=== PATIENT | female | born 1935 | race Caucasian/White ===

== ENCOUNTER 2017-04-29 17:28 | Emergency (ER) | payer MEDICARE ==
--- NOTE | 2017-04-29 18:27 | EDM.PDOC ---
ED HPI GENERAL MEDICAL PROBLEM - General Chief Complaint: Head Injury Stated Complaint: Fall with head injury Time Seen by Provider: 04/29/17 17:55 Source of Information: Reports: Patient, Family History Limitations: Reports: No Limitations - History of Present Illness INITIAL COMMENTS - FREE TEXT/NARRATIVE: Patient brought in for evaluation by daughter after falling and hitting head on car. Patient does not recall incident very clearly. Daughter was present. Saw her mother try to get out of the car. Patient slipped on mud, fell backwards, made contact with back of head on opened car door. No obvious full LOC but daughter reports that for some time her mother appeared dazed and only looked at the ground. Described her mother as being a "marshmallow". She was able to get her mother to stand with the assistance of a passerby. Patient complains of discomfort left posterior head as well as lower neck. No vision changes. Denies any other injuries other than left shoulder feeling a little sore. neck Pain Score (Numeric/FACES): 8 - Related Data Allergies Allergy/AdvReac Type Severity Reaction Status Date / Time acetaminophen [From Tylenol] Allergy Facial Verified 04/29/17 17:46 Swelling Home Meds: Home Meds Estrogens, Conjugated [Premarin] 0.5 tab PO DAILY 04/29/17 [History] Insulin Aspart [Novolog Flexpen] See Protocol SUBCUT TIDMEALS 04/29/17 [History] Insulin Detemir [Levemir] 7 units SUBCUT DAILY@2100 04/29/17 [History] RX: Levothyroxine [Synthroid] 88 mcg PO SUTUTHSA@0804/29/17 [History] RX: Levothyroxine [Synthroid] 100 mcg PO MOWEFR@0804/29/17 [History] RX: Lovastatin 10 mg PO DAILY 04/29/17 [History] RX: Metoprolol Tartrate 25 mg PO BID 04/29/17 [History] RX: Valsartan 80 mg PO DAILY 04/29/17 [History] Past Medical History Cardiovascular History: Reports: High Cholesterol, Hypertension Endocrine/Metabolic History: Reports: Diabetes, Type II, Hypothyroidism Social & Family History - Tobacco Use Smoking Status *Q: Never Smoker - Caffeine Use Caffeine Use: Reports: Coffee - Alcohol Use Alcohol Use History: No Alcohol Use in Last Twelve Months: No ED ROS GENERAL - Review of Systems Review Of Systems: See Below Constitutional: Reports: No Symptoms HEENT: Reports: No Symptoms. Denies: Dental Pain, Ear Pain, Eye Pain, Nosebleed , Nose Pain, Vertigo, Vision Change Respiratory: Reports: No Symptoms Cardiovascular: Reports: No Symptoms. Denies: Chest Pain GI/Abdominal: Reports: No Symptoms. Denies: Abdominal Pain : Reports: No Symptoms Musculoskeletal: Reports: Neck Pain, Shoulder Pain. Denies: Arm Pain, Back Pain , Hand Pain, Leg Pain, Foot Pain, Joint Pain, Joint Swelling, Muscle Pain, Muscle Stiffness Skin: Reports: Lumps (back of head), Other (small scab lateral to left eye from eyeglasses when she bumped her head yesterday) Neurological: Reports: Headache. Denies: Confusion, Dizziness, Numbness, Paresthesia, Seizure, Syncope, Tingling, Tremors, Trouble Speaking, Difficulty Walking, Weakness, Change in Speech, Gait Disturbance Psychiatric: Reports: No Symptoms ED EXAM, HEAD INJURY - Physical Exam Exam: See Below Exam Limited By: No Limitations General Appearance: Alert, WD/WN, No Apparent Distress Head: Scalp Hematoma (left posterior scalp/ occiput), Scalp Tenderness. No: Scalp Abrasions, Scalp Ecchymosis, Active Bleeding, Geronimo's Sign, Facial Abrasions, Facial Ecchymosis, Facial Lacerations, Facial Swelling, Sinus Tenderness, Facial Tenderness, Raccoon Eyes Nexus Criteria: Posterior, Midline Cervical Tenderness (towards base of neck). No: Evidence of Intoxication, Altered Level of Consciousness, Focal Neurological Deficit, Painful Distraction Injuries Eyes: Bilateral Eye: EOMI, PERRL Ears: Normal External Exam, Normal Canal, Hearing Grossly Normal, Normal TMs Nose: Normal Inspection, Normal Mucousa, No Blood Throat/Mouth: Normal Inspection, Normal Lips, Normal Teeth (normal dentition for age), Normal Gums, Normal Oropharynx, Normal Voice, No Airway Compromise Neck: Tenderness (midline and just lateral to base of neck). No: Abnormal Alignment, Limited Range of Motion, Muscle Spasm Respiratory: No Respiratory Distress, Lungs Clear, Normal Breath Sounds, No Accessory Muscle Use, Chest Non-Tender Cardiovascular: Normal Peripheral Pulses, Regular Rate, Rhythm, No Edema, No Murmur GI/Abdominal Exam: Normal Bowel Sounds, Soft, Non-Tender, No Distention (Female) Exam: Deferred Rectal (Female) Exam: Deferred Back Exam: No: CVA Tenderness (L), CVA Tenderness (R), Decreased Range of Motion , Muscle Spasm, Paraspinal Tenderness, Vertebral Tenderness Extremities: Normal Inspection (no focal tenderness noted with palpation), Normal Range of Motion, No Pedal Edema, Normal Capillary Refill Neurologic: No Motor/Sensory Deficits, Alert, Normal Mood/Affect, Oriented x 3 DTR: 2+: Bicep (R), Bicep (L), Patella (R), Patella (L) Skin: Normal Color, Warm/Dry, Other (healing area/small scab lateral to left eyebrow. No redness or drainage. ) - Yash Coma Score Best Eye Response ([place]): (4) Open Spontaneously Best Verbal Response (Yash): (5) Oriented Best Motor Response (Yash): (6) Obeys Commands Course - Vital Signs Last Recorded V/S: Last Vital Signs Temp 36.3 C 04/29/17 19:30 Pulse 74 04/29/17 19:30 Resp 16 04/29/17 19:30 BP 127/62 04/29/17 19:30 Pulse Ox 99 04/29/17 19:30 - Orders/Labs/Meds Orders: Active Orders 24 hr Category Date Time Status C-Spine [Cervical Spine wo Cont] [CT] Stat Exams 04/29/17 18:12 Taken Head wo Cont [CT] Stat Exams 04/29/17 18:12 Taken Labs: Laboratory Tests 04/29/17 Range/Units 19:49 POC Glucose 395 H* (65-110) mg/dl Meds: Medications Discontinued Medications Generic Name Dose Route Start Last Admin Trade Name Freq PRN Reason Stop Dose Admin Neomycin/Polymyxin/Bacitracin 1 each 04/29/17 19:54 04/29/17 19:58 Triple Antibiotic Oint TOP 04/29/17 19:55 1 each ONETIME ONE Administration - Radiology Interpretation CT Results Date: 04/29/17 CT Results Time: 19:50 (Degenerative changes in CSpine noted. No acute fractures /bleeds/trauma noted for head and C-spine studies. ) - Re-Assessments/Exams Free Text/Narrative Re-Assessment/Exam: 04/29/17 18:36 Given description from patient's daughter on how stunned patient was for 5-10" after fall, as well as complaint of neck pain, options were discussed and daughter/patient agreed with obtaining head and neck CT. 04/29/17 20:30 Scans negative for acute injury. Discussed results with patient and daughter. Will discharge patient home. Daughter will check on patient and agrees to bring her back to ER if any worsening problems are noted. Precautions reviewed prior to discharge. Departure - Departure Time of Disposition: 20:24 Disposition: Home, Self-Care 01 Condition: Good Clinical Impression: Strain of neck muscle Contusion of head Qualifiers: Encounter type: initial encounter Contusion of head detail: scalp Qualified Code(s): S00.03XA - Contusion of scalp, initial encounter Fall Qualifiers: Encounter type: initial encounter Qualified Code(s): W19.XXXA - Unspecified fall, initial encounter - Discharge Information Instructions: Head Injury, Adult, [id number] Referrals: PCP,Not In Area [Family Provider] - Forms: ED Department Discharge Additional Instructions: Take it easy for the next several days. OTC pain medication as discussed, please use caution with amount and frequency of ibuprofen/Aleve as it is hard on the kidneys. Ice may be helpful. Follow up if you have worsening problems/ neuro changes. Follow up with primary provider in 2-3 days if you are not seeing improvement. - My Orders Last 24 Hours: My Active Orders 04/29/17 18:12 C-Spine [Cervical Spine wo Cont] [CT] Stat Head wo Cont [CT] Stat - Assessment/Plan Last 24 Hours: My Active Orders 04/29/17 18:12 C-Spine [Cervical Spine wo Cont] [CT] Stat Head wo Cont [CT] Stat
[2017-04-29 19:45] VITALS: BP 127/62
[2017-04-29] MEDS ORDERED: Bacitracin/Neomycin/Polymyxin B Oint 0.9 GM U/D Packet TOP ONE (19:54)
== END 2017-04-29 20:36 | disposition home or self-care (01) ==
LOC: LL.ED 17:28 → SUPCPDRO 17:28 → LL.ED 20:36
DX: S16.1XXA Strain of muscle, fascia and tendon at neck level, initial encounter (principal); S00.03XA Contusion of scalp, initial encounter; E78.00 Pure hypercholesterolemia, unspecified; R40.2412 Glasgow coma scale score 13-15, at arrival to emergency department; I10 Essential (primary) hypertension; E03.9 Hypothyroidism, unspecified; E11.9 Type 2 diabetes mellitus without complications; Z79.899 Other long term (current) drug therapy; Z79.4 Long term (current) use of insulin; Z88.8 Allergy status to other drugs, medicaments and biological substances; W01.198A Fall on same level from slipping, tripping and stumbling with subsequent striking against other object, initial encounter
CPT/HCPCS: 70450; 72125; 82962; 99283; 99284

== ENCOUNTER 2019-03-27 18:43 | Emergency (ER) | payer MEDICARE ==
[2019-03-27 18:52] VITALS: BP 115/43
--- NOTE | 2019-03-27 19:18 | EDM.PDOC ---
ED HPI GENERAL MEDICAL PROBLEM - General Chief Complaint: Upper Extremity Injury/Pain Stated Complaint: Shoulder Pain Time Seen by Provider: 03/27/19 19:05 Source of Information: Reports: Patient History Limitations: Reports: No Limitations - History of Present Illness INITIAL COMMENTS - FREE TEXT/NARRATIVE: She is seen in the emergency department for evaluation of an injury to her right shoulder. She tripped on the last step of the [employer] at the [facility] this afternoon, falling down and landing on the right shoulder. Her arm was at her side. She is comfortable at rest. Sharp pain with active movement of the shoulder. Pain is most severe in the proximal lateral upper arm. No pain radiating down the arm. No numbness or tingling in the fingers. She does have some pain in the elbow with full extension of the elbow. Apparently fell yesterday and has an abrasion on the dorsal aspect of the elbow and has noted mild swelling posteriorly. No pain in the wrist or hand. No pain in the left upper extremity. She denies hitting her head. No loss of consciousness. No chest pain or tightness. No shortness of breath. No nausea, vomiting or diarrhea. No dizziness or lightheadedness. - Related Data Allergies Allergy/AdvReac Type Severity Reaction Status Date / Time acetaminophen [From Tylenol] Allergy Facial Unverified 03/27/19 19:05 Swelling Home Meds: Home Meds Estrogens, Conjugated [Premarin] 0.5 tab PO DAILY 04/29/17 [History] Insulin Aspart [Novolog Flexpen] See Protocol SUBCUT TIDMEALS 04/29/17 [History] Insulin Detemir [Levemir] 7 units SUBCUT DAILY@2100 04/29/17 [History] Levothyroxine [Synthroid] 88 mcg PO SUTUTHSA@0800 04/29/17 [History] Levothyroxine [Synthroid] 100 mcg PO MOWEFR@0804/29/17 [History] Lovastatin 10 mg PO DAILY 04/29/17 [History] Metoprolol Tartrate 25 mg PO BID 04/29/17 [History] Valsartan 80 mg PO DAILY 04/29/17 [History] hydroCHLOROthiazide [Hydrochlorothiazide] 1 tab PO DAILY 03/27/19 [History] Past Medical History HEENT History: Reports: Cataract, Impaired Vision Other HEENT History: wears glasses Cardiovascular History: Reports: High Cholesterol, Hypertension Gastrointestinal History: Reports: Gastritis, Other (See Below) Other Gastrointestinal History: Viral intestional infection in 2015 Endocrine/Metabolic History: Reports: Diabetes, Type II, Hypothyroidism - Past Surgical History HEENT Surgical History: Reports: Cataract Surgery Female Surgical History: Reports: Hysterectomy, Other (See Below) Other Female Surgeries/Procedures: Bladder Sling procedure Musculoskeletal Surgical History: Reports: Shoulder Surgery, Other (See Below) Other Musculoskeletal Surgeries/Procedures:: Hand Surgery x 1. Toes Surgery x 1 Social & Family History - Caffeine Use Caffeine Use: Reports: Coffee Review of Systems - Review of Systems Review Of Systems: See Below Constitutional: Denies: Chills, Fever, Weakness Eyes: Reports: No Symptoms Ears: Reports: No Symptoms Nose: Reports: No Symptoms Mouth/Throat: Reports: No Symptoms Respiratory: Denies: Shortness of Breath, Cough Cardiovascular: Denies: Chest Pain, Lightheadedness, Palpitations GI/Abdominal: Denies: Abdominal Pain, Diarrhea, Nausea, Vomiting Genitourinary: Denies: Dysuria, Hematuria Musculoskeletal: Reports: Joint Pain Skin: Reports: Wound (Right elbow) Neurological: Denies: Confusion, Dizziness, Headache, Numbness Psychiatric: Denies: Confusion, Depression ED EXAM, GENERAL - Physical Exam Exam: See Below Free Text/Narrative:: Healthy appearing adult woman in no acute distress. Right shoulder: No swelling or deformity. No discoloration. No warmth to touch. Minimal tenderness at the anterior glenohumeral joint line. No other significant tenderness. Minimal active range of motion secondary to pain. Sharp pain at 30 in both flexion and abduction. Passive flexion and abduction to 135 with pain in the extremes and painful arc at 30. Pain but no weakness with the resisted internal and external rotation. Possible impingement. Positive empty can test. Right elbow: Mild swelling over the olecranon. Superficial laceration the dorsal aspect of the proximal forearm. Mild tenderness in the posterior aspect of elbow distally. No other tenderness. No palpable defect. full range of motion with pain in extreme flexion. No pain with pronation or supination. No laxity. Left shoulder: No swelling, deformity or discoloration. No tenderness. Full range of motion without pain. Negative impingement. Negative empty can test. Left elbow: No swelling, deformity or discoloration. No tenderness. Full range of motion without pain. Exam Limited By: No Limitations Course - Vital Signs Last Recorded V/S: Last Vital Signs Temp 36.6 C 03/27/19 18:51 Pulse 65 03/27/19 18:51 Resp 16 03/27/19 18:51 BP 115/43 L 03/27/19 18:51 Pulse Ox 100 03/27/19 18:51 - Orders/Labs/Meds Orders: Active Orders 24 hr Category Date Time Status Humerus Rt [CR] Stat Exams 03/27/19 18:57 Taken Shoulder Comp Rt [CR] Stat Exams 03/27/19 18:57 Ordered - Radiology Interpretation Free Text/Narrative:: AP and lateral views of the right humerus. Findings: Normal alignment and position. Joint space narrowing in both elbow and shoulder. Question of slight lucency in the proximal radius extending to the radial head. No other fractures noted. No cystic or lytic changes. Impression: Normal elbow. Possible nondisplaced fracture of the radial head but I believe this is unlikely. Departure - Departure Time of Disposition: 19:50 Disposition: Home, Self-Care 01 Clinical Impression: Acute pain of right shoulder due to trauma - Discharge Information Referrals: Noemy Campos MD [Primary Care Provider] - Forms: ED Department Discharge Care Plan Goals: Ice the shoulder and elbow for 15 minutes 3-4 times daily. Wear the sling as needed for comfort. Frequent range of motion exercises for both the shoulder and elbow. Aleve 2 tablets twice daily with food for 5 days. Followup with primary provider orthopedics if not seeing improvement in 7-10 days. - My Orders Last 24 Hours: My Active Orders 03/27/19 18:57 Humerus Rt [CR] Stat Shoulder Comp Rt [CR] Stat - Assessment/Plan Last 24 Hours: My Active Orders 03/27/19 18:57 Humerus Rt [CR] Stat Shoulder Comp Rt [CR] Stat Assessment:: Right shoulder pain. Possible rotator cuff injury. Plan: Discussed findings and treatment options. Ice the shoulder and elbow for 15 minutes 3-4 times daily. She was placed in an envelope sling. Wear the sling as needed for comfort. Demonstrated range of motion exercises for both the shoulder and elbow to be done multiple times daily. Aleve 2 tablets twice daily with food for 5 days. Followup with primary provider orthopedics if not seeing improvement in 7-10 days.
== END 2019-03-27 19:55 | disposition home or self-care (01) ==
LOC: LL.ED 18:43
DX: S51.811A Laceration without foreign body of right forearm, initial encounter (principal); M25.511 Pain in right shoulder; I10 Essential (primary) hypertension; E11.9 Type 2 diabetes mellitus without complications; E78.00 Pure hypercholesterolemia, unspecified; E03.9 Hypothyroidism, unspecified; Z88.6 Allergy status to analgesic agent; Z79.4 Long term (current) use of insulin; Z79.899 Other long term (current) drug therapy; W10.8XXA Fall (on) (from) other stairs and steps, initial encounter
CPT/HCPCS: 73060-RT; 99283-25